=== PATIENT | male | born 1980 | race Caucasian/White ===

== ENCOUNTER 2017-04-27 21:09 | Emergency (ER) | payer MEDICAID, OTHER ==
[~2017-04-27] VITALS: Ht 170.2 cm; Wt 78.0 kg
[2017-04-27 21:16] VITALS: BP 144/76; PULSE 98; RESP 18; TEMP 98.4; O2SAT 100
--- NOTE | 2017-04-27 21:41 | PD ---
HPI Chief Complaint: Psychiatric Symptoms Time Seen by Provider: 21:22 Travel History International Travel<30 days: No Contact w/Intl Traveler<30days: No Traveled to known affect area: No History of Present Illness HPI Patient is a 36-year-old male who presents to ER with c/o of drug abuse. Patient reports that he called police officers today as he relapsed and used IV Dilaudid as well as use methamphetamines. Patient reports that he told the recovery operator he wanted to go to detox, he did report that he had a primer boxer in his bag that he uses for his job. Patient reports that before he knew it, he was being brought to the emergency room under a Michael act. Patient reports that he is not suicidal or homicidal, patient reports that he is a drug addict. [facility] Past Medical History Medical History: Denies Significant Hx Tetanus Vaccination: < 5 Years Influenza Vaccination: No Past Surgical History Surgical History: No Previous Surgery Social History Alcohol Use: Yes Tobacco Use: No Substance Use: Yes (METH, DILAUDID ) Allergies-Medications (Allergen,Severity, Reaction): Coded Allergies: No Known Allergies (Unverified , 04/27/17) Reported Meds & Prescriptions Reported Meds & Active Scripts Active No Active Prescriptions or Reported Medications Review of Systems General / Constitutional: No: Fever Eyes: No: Visual changes HENT: No: Headaches Cardiovascular: No: Chest Pain or Discomfort Respiratory: No: Shortness of Breath Gastrointestinal: No: Abdominal Pain Genitourinary: No: Dysuria Musculoskeletal: No: Pain Skin: No Rash Neurologic: No: Weakness Psychiatric: Positive: Substance Abuse, No: Depression, Suicidal Ideations Endocrine: No: Polydipsia Hematologic/Lymphatic: No: Easy Bruising Physical Exam Narrative GENERAL: NAD SKIN: Focused skin assessment warm/dry. HEAD: Atraumatic. Normocephalic. EYES: Pupils equal and round. No scleral icterus. No injection or drainage. ENT: No nasal bleeding or discharge. Mucous membranes pink and moist. NECK: Trachea midline. No JVD. CARDIOVASCULAR: Regular rate and rhythm. No murmur appreciated. RESPIRATORY: No accessory muscle use. Clear to auscultation. Breath sounds equal bilaterally. GASTROINTESTINAL: Abdomen soft, non-tender, nondistended. Hepatic and splenic margins not palpable. MUSCULOSKELETAL: No obvious deformities. No clubbing. No cyanosis. No edema. NEUROLOGICAL: Awake and alert. No obvious cranial nerve deficits. Motor grossly within normal limits. Normal speech. PSYCHIATRIC: Anxious mood and affect; denies suicidal or homicidal ideations Data Data Last Documented VS Vital Signs Date Time Temp Pulse Resp B/P (MAP) Pulse Ox O2 Delivery O2 Flow Rate FiO2 04/27/17 21:24 18 04/27/17 21:16 98.4 98 144/76 (98) 100 Orders Orders Complete Blood Count With Diff (04/27/17 21:19) Comprehensive Metabolic Panel (04/27/17 21:19) Psych Screen (04/27/17 21:19) Drug Screen, Random Urine (04/27/17 21:19) Alcohol (Ethanol) (04/27/17 21:19) Salicylates (Aspirin) (04/27/17 21:19) Tylenol (Acetaminophen) (04/27/17 21:19) Haloperidol Inj (Haldol Inj) (04/27/17 22:00) Lorazepam Inj (Ativan Inj) (04/27/17 22:00) Diphenhydramine Inj (Benadryl Inj) (04/27/17 22:00) Diphenhydramine Inj (Benadryl Inj) (04/27/17 21:58) Haloperidol Inj (Haldol Inj) (04/27/17 21:58) Lorazepam Inj (Ativan Inj) (04/27/17 21:58) Ketamine Inj (Ketalar Inj) (04/27/17 22:30) Ecg Monitoring (04/27/17 22:22) Oximetry (04/27/17 22:22) Labs Laboratory Tests Test 04/27/17 21:27 White Blood Count 8.8 TH/MM3 Red Blood Count 4.99 MIL/MM3 Hemoglobin 15.5 GM/DL Hematocrit 44.5 % Mean Corpuscular Volume 89.2 FL Mean Corpuscular Hemoglobin 31.0 PG Mean Corpuscular Hemoglobin Concent 34.7 % Red Cell Distribution Width 13.4 % Platelet Count 291 TH/MM3 Mean Platelet Volume 7.8 FL Neutrophils (%) (Auto) 71.4 % Lymphocytes (%) (Auto) 20.1 % Monocytes (%) (Auto) 7.9 % Eosinophils (%) (Auto) 0.1 % Basophils (%) (Auto) 0.5 % Neutrophils # (Auto) 6.3 TH/MM3 Lymphocytes # (Auto) 1.8 TH/MM3 Monocytes # (Auto) 0.7 TH/MM3 Eosinophils # (Auto) 0.0 TH/MM3 Basophils # (Auto) 0.0 TH/MM3 CBC Comment DIFF FINAL Differential Comment Blood Urea Nitrogen 19 MG/DL Creatinine 0.96 MG/DL Random Glucose 77 MG/DL Total Protein 8.4 GM/DL Albumin 4.0 GM/DL Calcium Level 8.8 MG/DL Alkaline Phosphatase 67 U/L Aspartate Amino Transf (AST/SGOT) 86 U/L Alanine Aminotransferase (ALT/SGPT) 136 U/L Total Bilirubin 0.7 MG/DL Sodium Level 137 MEQ/L Potassium Level 3.8 MEQ/L Chloride Level 105 MEQ/L Carbon Dioxide Level 23.6 MEQ/L Anion Gap 8 MEQ/L Estimat Glomerular Filtration Rate 89 ML/MIN Salicylates Level 2.0 MG/DL Acetaminophen Level LESS THAN 2.0 MCG/ML Ethyl Alcohol Level 52 MG/DL MDM Medical Decision Making Medical Screen Exam Complete: Yes Emergency Medical Condition: Yes Medical Record Reviewed: Yes Interpretation(s) Vital Signs Date Time Temp Pulse Resp B/P (MAP) Pulse Ox O2 Delivery O2 Flow Rate FiO2 04/27/17 21:24 18 04/27/17 21:16 98.4 98 18 144/76 (98) 100 Differential Diagnosis Drug abuse, depression Narrative Course Patient was placed under Michael act, psychiatric screening labs ordered. Patient became combative, he was a danger to himself as well as to others. Patient was becoming physically aggressive to staff. Patient required chemical sedation for his safety as well as safety of staff. Critical Care Narrative Aggregate critical care time was 30 minutes. Time to perform other separately billable procedures was not included in the critical care time. My time did not include minutes spent treating any other patients simultaneously or on activities that did not directly contribute to the patient's treatment. The services I provided to this patient were to treat and/or prevent clinically significant deterioration that could result in: , decompensation, deterioration I provided critical care services requiring my management, as noted below: Chart data review, documentation time, medication orders and management, vital sign assessments/reviewing monitor data, ordering and reviewing lab tests, ordering and interpreting/reviewing x-rays and diagnostic studies, care of the patient and discussion of the patient with the admitting physicians. Scripts No Active Prescriptions or Reported Meds Rachelle Whitaker DO Apr 27, 2017 21:41
[2017-04-27 21:46] LABS: AUTOMATED NEUTROPHIL # 6.3 TH/MM3 (1.8-7.7); BASOPHIL % 0.5 % (0.0-2.0); EOSINOPHIL % 0.1 % (0.0-4.0); HEMATOCRIT 44.5 % (39.0-51.0); HEMO FLAGS DIFF FINAL; LYMPH % 20.1 % (9.0-44.0); LYMPHOCYTE # 1.8 TH/MM3 (1.0-4.8); MEAN CELL VOLUME 89.2 FL (80.0-100.0); MEAN CORPUSCULAR HGB CONC 34.7 % (32.0-36.0); MONO % 7.9 % (0.0-8.0); NEUT % 71.4 % (16.0-70.0); PLATELET COUNT 291 TH/MM3 (150-450); RED BLOOD COUNT 4.99 MIL/MM3 (4.50-5.90); RED CELL DISTRIBUTION WIDTH 13.4 % (11.6-17.2); WHITE BLOOD COUNT 8.8 TH/MM3 (4.0-11.0)
[2017-04-27] MEDS ORDERED: LORazepam 2 MG/ML VIAL ONE (21:58)
[2017-04-27] MEDS ORDERED: HALOPERIDOL LACTATE 5 MG/ML AMP ONE (21:58)
[2017-04-27] MEDS ORDERED: diphenhydrAMINE HCL 50 MG/ML VIAL ONE (21:58)
[2017-04-27] MEDS ORDERED: LORazepam 2 MG/ML VIAL IM ONE (22:00)
[2017-04-27] MEDS ORDERED: HALOPERIDOL LACTATE 5 MG/ML AMP IM ONE (22:00)
[2017-04-27] MEDS ORDERED: diphenhydrAMINE HCL 50 MG/ML VIAL IM ONE (22:00)
[2017-04-27 22:15] LABS: ANION GAP 8 MEQ/L (5-15); BICARBONATE 23.6 MEQ/L (21.0-32.0); BLOOD UREA NITROGEN 19 MG/DL (7-18); CHLORIDE 105 MEQ/L (98-107); GLOMERULAR FILTRATION RATE 89 ML/MIN (>89); POTASSIUM 3.8 MEQ/L (3.5-5.1); SODIUM (NA) 137 MEQ/L (136-145)
[2017-04-27 22:16] LABS: ALT (GPT) 136 U/L (12-78); AST (GOT) 86 U/L (15-37)
[2017-04-27 22:17] LABS: ALCOHOL 52 MG/DL (0-5)
[2017-04-27 22:18] LABS: ALKALINE PHOSPHATASE 67 U/L (45-117); TOTAL BILIRUBIN ADULT 0.7 MG/DL (0.2-1.0)
[2017-04-27 22:20] LABS: ACETAMINOPHEN LESS THAN 2.0 MCG/ML (10.0-30.0)
[2017-04-27] MEDS ORDERED: KETAMINE HCL 500 MG/5 ML VIAL IM ONE (22:30)
[2017-04-28 02:46] VITALS: BP 129/74; PULSE 81; RESP 16; O2SAT 98
[2017-04-28 06:25] VITALS: BP 117/65; PULSE 88; RESP 18; O2SAT 98
[2017-04-28 11:13] VITALS: BP 126/58; PULSE 107; RESP 18; TEMP 99.4; O2SAT 98
[2017-04-28 14:55] VITALS: BP 133/63; PULSE 77; RESP 18
--- NOTE | 2017-04-28 15:49 | PD ---
History of Present Illness Chief Complaint: Psychiatric Symptoms Time Seen by Provider: 15:00 Travel History International Travel<30 Days: No Contact w/Intl Traveler<30days: No Known affected area: No Legal Status Legal Status: Voluntary History of Present Illness: History of Present Illness HPI Patient is a 36-year-old male with history of substance abuse who presents to ER under a Michael act initiated by law enforcement. The Michael act alleges that the patient reported feeling depressed because of his relapse. He stated he would cut himself with a knife or overdose because of his depression. The patient denies that he stated he would hurt himself or that he had any intention of doing so. He reports he called the police to be taken to detox and informed them he had a jukebox routeman in his back pack that he uses for work. He had been at [email or web address] for eight months and relapsed 3 days ago. he has been using Dilaudid for the past 3 days as well as amphetamines, cocaine and alcohol. His BAL on admission is 52. This morning he is seen with nurse Aguilar. The patient is asleep but awakens easily. he is alert, oriented. There is no psychosis and no jose r. Denies any suicidal or homicidal ideation, intent or plan and is requesting detox services. He is wanting to go back to [email or web address] the [facility] on Sunday. PFSH Past Medical History Medical History: Denies Significant Hx Tetanus Vaccination: < 5 Years Influenza Vaccination: No Past Surgical History Surgical History: No Previous Surgery Psychiatric History Psychiatric History Hx Psychiatric Treatment: deneis any History of Inpatient Treatment: No Guns or firearms in home: No Social History Single male. Lives in sober living home. Hx Alcohol Use: Yes Hx Tobacco Use: No Hx Substance Use: Yes (METH, DILAUDID ) Substance Use Type: Alcohol, Amphetamines-Stimulants, Cocaine, Synth Opiates- Pain Pills Hx of Substance Use Treatment: Yes Family Psychiatric History Negative. Allergies-Medications (Allergen,Severity, Reaction): Coded Allergies: No Known Allergies (Unverified , 04/27/17) Reported Meds & Prescriptions Reported Meds & Active Scripts Active No Active Prescriptions or Reported Medications Review of Systems Except as stated in HPI: all other systems reviewed are Neg Mental Status Examination Appearance: Appropriate, Disheveled Consciousness: Alert Orientation: x4 Motor Activity: Normal gait Speech: Unremarkable Language: Adequate Fund of Knowledge: Adequate Attention and Concentration: Adequate Memory: Unremarkable Mood: Appropriate Affect: Appropriate Thought Process & Associations: Intact Thought Content: Appropriate Hallucination Type: None Delusion Type: None Suicidal Ideation: No Suicidal Plan: No Suicidal Intention: No Homicidal Ideation: No Homicidal Plan: No Homicidal Intention: No Insight: Fair Judgment: Impulsive MDM Medical Decision Making Assessment/Plan 36 year old male with history of substance abuse who called the police to request to be taken to a detox facility and was placed under a Michael act. He reported to the police that he had a jukebox routeman in his possession. The police reports that the patient said he was depressed and that he would use the jukebox routeman to cut himself. He denies any suicidal or homicidal ideation, intent or plan. He is wanting to go to detox. he also plans on returning to [facility] once he is able to provide a clean urine. Patient with no evidence of unstable mental illness. Does not meet michael act criteria. Lift BA. Discharge to home. Orders Orders Complete Blood Count With Diff (04/27/17 21:19) Comprehensive Metabolic Panel (04/27/17 21:19) Psych Screen (04/27/17 21:19) Drug Screen, Random Urine (04/27/17 21:19) Alcohol (Ethanol) (04/27/17 21:19) Salicylates (Aspirin) (04/27/17 21:19) Tylenol (Acetaminophen) (04/27/17 21:19) Haloperidol Inj (Haldol Inj) (04/27/17 22:00) Lorazepam Inj (Ativan Inj) (04/27/17 22:00) Diphenhydramine Inj (Benadryl Inj) (04/27/17 22:00) Diphenhydramine Inj (Benadryl Inj) (04/27/17 21:58) Haloperidol Inj (Haldol Inj) (04/27/17 21:58) Lorazepam Inj (Ativan Inj) (04/27/17 21:58) Ketamine Inj (Ketalar Inj) (04/27/17 22:30) Ecg Monitoring (04/27/17 22:22) Oximetry (04/27/17 22:22) Diet Regular Basic (04/28/17 Breakfast) Diet Regular Basic (04/28/17 Lunch) Results Vital Signs Date Time Temp Pulse Resp B/P (MAP) Pulse Ox O2 Delivery O2 Flow Rate FiO2 04/28/17 14:55 77 18 133/63 (86) Room Air 04/28/17 11:13 99.4 107 18 126/58 (80) 98 Room Air 04/28/17 06:25 88 18 117/65 (82) 98 Room Air 04/28/17 02:46 81 16 129/74 (92) 98 Room Air 04/27/17 21:24 18 04/27/17 21:16 98.4 98 18 144/76 (98) 100 Laboratory Tests Test 04/27/17 21:27 04/28/17 04:30 White Blood Count 8.8 Red Blood Count 4.99 Hemoglobin 15.5 Hematocrit 44.5 Mean Corpuscular Volume 89.2 Mean Corpuscular Hemoglobin 31.0 Mean Corpuscular Hemoglobin Concent 34.7 Red Cell Distribution Width 13.4 Platelet Count 291 Mean Platelet Volume 7.8 Neutrophils (%) (Auto) 71.4 Lymphocytes (%) (Auto) 20.1 Monocytes (%) (Auto) 7.9 Eosinophils (%) (Auto) 0.1 Basophils (%) (Auto) 0.5 Neutrophils # (Auto) 6.3 Lymphocytes # (Auto) 1.8 Monocytes # (Auto) 0.7 Eosinophils # (Auto) 0.0 Basophils # (Auto) 0.0 CBC Comment DIFF FINAL Differential Comment Blood Urea Nitrogen 19 Creatinine 0.96 Random Glucose 77 Total Protein 8.4 Albumin 4.0 Calcium Level 8.8 Alkaline Phosphatase 67 Aspartate Amino Transf (AST/SGOT) 86 Alanine Aminotransferase (ALT/SGPT) 136 Total Bilirubin 0.7 Sodium Level 137 Potassium Level 3.8 Chloride Level 105 Carbon Dioxide Level 23.6 Anion Gap 8 Estimat Glomerular Filtration Rate 89 Salicylates Level 2.0 Acetaminophen Level LESS THAN 2.0 Ethyl Alcohol Level 52 Urine Opiates Screen POS Urine Barbiturates Screen NEG Urine Amphetamines Screen POS Urine Benzodiazepines Screen NEG Urine Cocaine Screen POS Urine Cannabinoids Screen NEG Diagnosis Primary Impression: Opiate abuse, episodic Additional Impressions: Cocaine abuse Cannabis abuse Psychiatrically Cleared: Yes Med/ Other Pt Specific Info: No Change to Meds, No Meds Exist/No RX given Prescriptions No Active Prescriptions or Reported Meds Disposition: 01 DISCHARGE HOME Condition: Stable Problem Qualifiers Génesis Reyna Apr 28, 2017 15:49
--- NOTE | 2017-04-28 16:09 | PD ---
Physical Exam Date Seen by Provider: Apr 28, 2017 Narrative 36-year-old male presented to the emergency department with suicidal ideations. Patient is also an illicit drug user and wants to detox. Patient was evaluated medical. See psychiatry. Psychiatry determined that patient did not meet ann act criteria. Patient denies any suicidal or homicidal ideations at this time it was like to go back to his home. States he will follow up outpatient for detox. Data Data Last Documented VS Vital Signs Date Time Temp Pulse Resp B/P (MAP) Pulse Ox O2 Delivery O2 Flow Rate FiO2 04/28/17 16:50 04/28/17 16:22 88 18 04/28/17 14:55 Room Air 04/28/17 11:13 99.4 98 Orders Orders Complete Blood Count With Diff (04/27/17 21:19) Comprehensive Metabolic Panel (04/27/17 21:19) Psych Screen (04/27/17 21:19) Drug Screen, Random Urine (04/27/17 21:19) Alcohol (Ethanol) (04/27/17 21:19) Salicylates (Aspirin) (04/27/17 21:19) Tylenol (Acetaminophen) (04/27/17 21:19) Haloperidol Inj (Haldol Inj) (04/27/17 22:00) Lorazepam Inj (Ativan Inj) (04/27/17 22:00) Diphenhydramine Inj (Benadryl Inj) (04/27/17 22:00) Diphenhydramine Inj (Benadryl Inj) (04/27/17 21:58) Haloperidol Inj (Haldol Inj) (04/27/17 21:58) Lorazepam Inj (Ativan Inj) (04/27/17 21:58) Ketamine Inj (Ketalar Inj) (04/27/17 22:30) Ecg Monitoring (04/27/17 22:22) Oximetry (04/27/17 22:22) Diet Regular Basic (04/28/17 Breakfast) Diet Regular Basic (04/28/17 Lunch) Ed Discharge Order (04/28/17 16:09) Labs Laboratory Tests Test 04/27/17 21:27 04/28/17 04:30 White Blood Count 8.8 TH/MM3 Red Blood Count 4.99 MIL/MM3 Hemoglobin 15.5 GM/DL Hematocrit 44.5 % Mean Corpuscular Volume 89.2 FL Mean Corpuscular Hemoglobin 31.0 PG Mean Corpuscular Hemoglobin Concent 34.7 % Red Cell Distribution Width 13.4 % Platelet Count 291 TH/MM3 Mean Platelet Volume 7.8 FL Neutrophils (%) (Auto) 71.4 % Lymphocytes (%) (Auto) 20.1 % Monocytes (%) (Auto) 7.9 % Eosinophils (%) (Auto) 0.1 % Basophils (%) (Auto) 0.5 % Neutrophils # (Auto) 6.3 TH/MM3 Lymphocytes # (Auto) 1.8 TH/MM3 Monocytes # (Auto) 0.7 TH/MM3 Eosinophils # (Auto) 0.0 TH/MM3 Basophils # (Auto) 0.0 TH/MM3 CBC Comment DIFF FINAL Differential Comment Blood Urea Nitrogen 19 MG/DL Creatinine 0.96 MG/DL Random Glucose 77 MG/DL Total Protein 8.4 GM/DL Albumin 4.0 GM/DL Calcium Level 8.8 MG/DL Alkaline Phosphatase 67 U/L Aspartate Amino Transf (AST/SGOT) 86 U/L Alanine Aminotransferase (ALT/SGPT) 136 U/L Total Bilirubin 0.7 MG/DL Sodium Level 137 MEQ/L Potassium Level 3.8 MEQ/L Chloride Level 105 MEQ/L Carbon Dioxide Level 23.6 MEQ/L Anion Gap 8 MEQ/L Estimat Glomerular Filtration Rate 89 ML/MIN Salicylates Level 2.0 MG/DL Acetaminophen Level LESS THAN 2.0 MCG/ML Ethyl Alcohol Level 52 MG/DL Urine Opiates Screen POS Urine Barbiturates Screen NEG Urine Amphetamines Screen POS Urine Benzodiazepines Screen NEG Urine Cocaine Screen POS Urine Cannabinoids Screen NEG MDM Supervised Visit with MICHELLE: Yes Diagnosis Primary Impression: Opiate abuse, episodic Additional Impressions: Cannabis abuse Cocaine abuse Scripts No Active Prescriptions or Reported Meds Disposition: 01 DISCHARGE HOME Condition: Stable Skye Emery Apr 28, 2017 16:09
[2017-04-28 16:22] VITALS: PULSE 88; RESP 18
== END 2017-04-28 16:50 | disposition home or self-care (01) ==
LOC: NEPD 21:09 → NEPJ 04-28 16:50
DX: F11.10 Opioid abuse, uncomplicated (principal); F12.10 Cannabis abuse, uncomplicated; F14.10 Cocaine abuse, uncomplicated
CPT/HCPCS: 80053; 80307; 85025; 96372; 99291; J1200; J1630; J2060